=== PATIENT | female | born 1955 | race Caucasian/White ===

== ENCOUNTER 2022-08-06 08:53 | Inpatient (IN) | payer OTHER, MEDICARE ==
[2022-08-01 10:52] LABS: BASOPHILS # (AUTO) 0.1 X10'3 (0-0.2); MONOCYTES # (AUTO) 0.5 X10'3 (0-0.9); NEUTROPHILS # (AUTO) 3.9 X10'3 (1.8-7.7); PRE OP HEMOGLOBIN 12.6 g/dL (12.0-16.0)
[2022-08-01 10:54] LABS: BASOPHILS % (AUTO) 1.4 % (0-1); EOSINOPHILS % (AUTO) 0.5 % (0-6); LYMPHOCYTES # (AUTO) 1.4 X10'3 (1.1-4.8); LYMPHOCYTES % (AUTO) 24.1 % (21-51); MEAN CORPUSCULAR HEMOGLOBIN 32.2 PG (27.0-31.0); MEAN CORPUSCULAR HGB CONC 33.6 g/dL (33.0-36.5); MEAN CORPUSCULAR VOLUME 95.6 FL (78-98); MEAN PLATELET VOLUME 6.2 FL (7.4-10.4); MONOCYTES % (AUTO) 8.4 % (2-12); NEUTROPHILS % (AUTO) 65.6 % (42-75); PRE OP HEMATOCRIT 37.4 % (35.0-45.0); PRE OP PLATELET COUNT 447 X10'3 (140-440); RED BLOOD COUNT 3.91 X10'6 (4.20-5.60)
[2022-08-01 11:03] LABS: ALBUMIN 4.4 G/DL (3.4-5.0); ALBUMIN/GLOBULIN RATIO 1.3 (1.1-1.5); ALKALINE PHOSPHATASE 78 IU/L (46-116); BLOOD UREA NITROGEN 33 MG/DL (7-18); BUN/CREATININE RATIO 37.5 (10.0-20.0); CALCIUM 10.9 MG/DL (8.5-10.1); CHLORIDE 100 MMOL/L (99-107); CREATININE 0.88 MG/DL (0.40-0.90); PRE OP ALT 26 U/L (30-65); PRE OP ANION GAP 8 (8-16); PRE OP AST 28 U/L (10-37); PRE OP BILIRUB, TOTAL 0.3 MG/DL (0.0-1.0); PRE OP GLUCOSE 112 MG/DL (70-104); PRE OP POTASSIUM 4.9 MMOL/L (3.4-5.1); PRE OP SODIUM 135 MMOL/L (135-145); TOTAL CARBON DIOXIDE 27.3 MMOL/L (24-32); TOTAL PROTEIN 7.7 G/DL (6.4-8.2); eGFR 64 ML/MIN
[2022-08-06] VITALS (25 sets, daily range): BP systolic 87–157; BP diastolic 55–99
[~2022-08-06] VITALS: Ht 160 cm; Wt 63.4 kg
[~2022-08-06 08:53] MED LIST: ACET-2971 PO; ACET-864 PO; BIOT10004 PO; CALC-855 PO; DEXT15CA33 PO; DICL20GE TOP; HYDROcodone/acetaminophen 10/325mg tab PO PRN; IBUP-2768 PO; LISI20TA28 PO; MAGN400C PO; OMEG-5 PO; ROPIVAcaine 0.5% (5mg/ml) 30ml vial ONE; ZINC ACETATE PO SCH; ZINC25CA PO; acetaminophen 325mg tablet PO ONE; acetaminophen 325mg tablet PO PRN; bisacodyl 10mg suppository rectal RC PRN; cefazolin 2gm/D5W 100mL 100 ML IV ONE; celeCOXIB 100mg capsule PO ONE; dextroamphetam/amphetam ER cap 15 MG CAP.ER.24H PO SCH; diphenhydrAMINE 25mg capsule PO PRN; epiNEPHrine 1 mg/ml inj ONE; famotidine 20mg tablet PO ONE; gabapentin 300mg capsule PO ONE; ketorolac trometh. 30mg/ml inj. ONE; magnesium hydroxide 30ml (MOM) UD suspension PO PRN; metoclopramide 5 mg/ml inj IV ONE; naloxone 0.4 mg/ml inj IV PRN; ondansetron/PF 4mg/2ml inj IV PRN; oxyCODONE SR 10mg (sust. release) tab -2 tabs (20mg) PO ONE; ringers solution, lacted 1,000 ML IV SCH; tranexamic acid inj. 1,000 MG in normal saline IV soln 100ML IV ONE; vancomycin 1,000mg inj ONE; vancomycin/NS 1 GM in NS 250 ML IV ONE
--- NOTE | 2022-08-06 09:00 | NUR ---
CSM: PEDAL PULSES MARKED AND PRESENT. MUPIROCIN CREAM WAS NOT ORDERED FOR THIS PATIENT. PATIENT WATCHED THE VIDEO. EDUCATED PATIENT ON THE USE OF THE INCENTIVE SPIROMETER AND ITS IMPORTANCE.
[2022-08-06] MEDS ORDERED: MIDAZolam 1 MG/ML 5ML VIAL ONE (11:45)
[2022-08-06] MEDS ORDERED: fentaNYL/PF 50MCG/1 ML 2ML syringe ONE ×2 (11:45→14:06)
[2022-08-06] MEDS ORDERED: morphine 2 MG/ML inj. syringe IV PRN (12:20)
[2022-08-06] MEDS ORDERED: ondansetron/PF 4mg/2ml inj IV PRN (12:20)
[2022-08-06] MEDS ORDERED: meperidine/PF 25mg/ml syringe IV PRN ×3 (12:20)
[2022-08-06] MEDS ORDERED: ringers solution, lacted 1,000 ML IV SCH (12:20)
[2022-08-06] MEDS ORDERED: proCHLORperazine 10 MG/2 ml inj IV PRN (12:20)
[2022-08-06] MEDS ORDERED: ROPIVAcaine 0.2% (10 MG/5 ML) BOLUS INJECTION ADDCANAL PRN (12:20)
[2022-08-06] MEDS ORDERED: morphine 4 MG/ML inj SYRINge IV PRN (12:20)
[2022-08-06] MEDS ORDERED: ROPIVAcaine 0.2%/PF PUMP/bolus 545 ML ADDCANAL SCH (12:20)
[2022-08-06] MEDS ORDERED: HYDROmorphone inj. 0.5 MG/0.5 ML DISP.SYRIN IV PRN (13:00)
[2022-08-06] MEDS ORDERED: HYDROmorphone 1 mg/ml syringe IV PRN (13:00)
[2022-08-06] MEDS ORDERED: cloNIDine hcl/PF 100mcg/ml inj ONE (13:44)
[2022-08-06] MEDS ORDERED: propofol inj 20 ML IV ONE ×2 (14:05)
[2022-08-06] MEDS ORDERED: dexamethasone sod phosphate 4mg/ml inj. ONE (14:05)
[2022-08-06] MEDS ORDERED: diphenhydrAMINE 50 mg/ml inj ONE (14:05)
[2022-08-06] MEDS ORDERED: ketamine 50mg/5ml syringe ONE (14:40)
[2022-08-06] MEDS ORDERED: hydrALAZINE 20mg/ml inj. IV ONE (14:42)
[2022-08-06] MEDS ORDERED: meperidine/PF 25mg/ml syringe ONE (14:50)
--- NOTE | 2022-08-06 14:55 | NUR ---
Received from OR via BED, accompanied by Anesthesiologist and report given by CAMERON Anesthesiologist. PATIENT WAKING UP, DENIES PAIN, V/S WNL, SCD ON, 20G TO RIGHT AC, MANI DRESSING TO RIGHT KNEE C/D/I with ON Q BALL AT 2ML/HR. Addendum: 08/06/22 at 1532 by Caio Knowles RN Amended: Links added.
[2022-08-06] MEDS ORDERED: NORMAL SALINE IV ONE (17:00)
[2022-08-06] MEDS ORDERED: TRANEXAMIC ACID IV ONE (17:00)
--- NOTE | 2022-08-06 17:05 | NUR ---
PATIENT HAS MET ALL CRITERIA FOR TRANSFER TO ORTHO FLOOR. VSS. DRESSINGS INTACT. BED LOW, CALL LIGHT PRESENT AND 2 RAILS UP. RN PRESENT TO ACCEPT CARE OF PATIENT AND REPORT HAS BEEN CALLED. ALL QUESTIONS ANSWERED TO ACCEPTING RN. Addendum: 08/06/22 at 1715 by Caio Knowles RN Amended: Links added.
--- NOTE | 2022-08-06 18:47 | NUR ---
Patient in room [facility]TH[facility] 4009. I have received report from Renetta PÉREZ and had the opportunity to ask questions and assume patient care.
--- NOTE | 2022-08-06 18:47 | NUR ---
Report to Monserrat Sauer RN
[2022-08-06] MEDS: lisinopril 20mg tablet PO SCH (19:00)
[2022-08-06] MEDS: HYDROcodone/acetaminophen 10/325mg tab PO PRN (19:38)
[2022-08-06] MEDS ORDERED: vancomycin/NS 1 GM ADD-VANTAGE 250 ML IV SCH (20:00)
[2022-08-06] MEDS ORDERED: sennosides 8.6mg tablet PO SCH (21:00)
[2022-08-06] MEDS: potassium cl 20mEq in 1/2 NS 1,000 ML IV SCH (21:16)
[2022-08-06] MEDS: ceFAZolin/D5W- 1GM premix 50 ML IV SCH (21:17)
[2022-08-06] MEDS: ascorbic acid 500mg tablet PO SCH (21:20)
[2022-08-06] MEDS: gabapentin 300mg capsule PO SCH (21:21)
[2022-08-07 02:00] VITALS: BP 92/49
[2022-08-07] MEDS: HYDROcodone/acetaminophen 10/325mg tab PO PRN ×2 (04:15→08:30)
[2022-08-07] MEDS: potassium cl 20mEq in 1/2 NS 1,000 ML IV SCH ×2 (04:15)
[2022-08-07] MEDS: ceFAZolin/D5W- 1GM premix 50 ML IV SCH (05:09)
--- NOTE | 2022-08-07 06:40 | NUR ---
Problems reprioritized. Patient report given, questions answered & plan of care reviewed with Elizabeth PÉREZ.
[2022-08-07 07:00] VITALS: BP 119/76
[2022-08-07] MEDS ORDERED: multivitamins, therapeutics tablet PO SCH (08:00)
[2022-08-07] MEDS ORDERED: magnesium oxide 400mg tablet PO SCH (08:00)
[2022-08-07 08:20] LABS: BASOPHILS # (AUTO) 0.1 X10'3 (0-0.2); BASOPHILS % (AUTO) 0.6 % (0-1); EOSINOPHILS % (AUTO) 0.5 % (0-6); HEMATOCRIT 29.8 % (35.0-45.0); HEMOGLOBIN 10.1 g/dl (12.0-16.0); LYMPHOCYTES # (AUTO) 1.4 X10'3 (1.1-4.8); LYMPHOCYTES % (AUTO) 14.2 % (21-51); MEAN CORPUSCULAR HEMOGLOBIN 32.6 PG (27.0-31.0); MEAN CORPUSCULAR VOLUME 95.8 FL (78-98); MEAN PLATELET VOLUME 6.4 FL (7.4-10.4); MONOCYTES % (AUTO) 10.5 % (2-12); NEUTROPHILS # (AUTO) 7.3 X10'3 (1.8-7.7); NEUTROPHILS % (AUTO) 74.2 % (42-75); PLATELET COUNT 331 X10'3 (140-440); RED BLOOD COUNT 3.11 X10'6 (4.20-5.60); RED CELL DISTRIBUTION WIDTH 13.6 % (11.5-14.5); WHITE BLOOD COUNT 9.9 X10'3 (4.5-11.0)
[2022-08-07] MEDS ORDERED: aspirin 325mg tablet PO SCH (08:30)
[2022-08-07] MEDS: lisinopril 20mg tablet PO SCH (08:30)
[2022-08-07] MEDS ORDERED: dextroamphetam/amphetam ER cap 15 MG CAP.ER.24H PO SCH (08:30)
[2022-08-07] MEDS: ascorbic acid 500mg tablet PO SCH (08:31)
[2022-08-07] MEDS: gabapentin 300mg capsule PO SCH (08:31)
[2022-08-07 08:50] LABS: ANION GAP 1 (8-16); CHLORIDE 100 MMOL/L (99-107); POTASSIUM 4.5 MMOL/L (3.5-5.1); SODIUM 129 MMOL/L (135-145)
--- NOTE | 2022-08-07 10:00 | NUR ---
Patient wheeled out of hospital. IV taken out and canula intact.
--- NOTE | 2022-08-07 10:52 | NUR ---
Joint surgery consult: Pt s/p R knee surgery this admit per EMR. Pt seen by MELL for written/verbal high protein diet ed w/ RD contact information provided. MELL encouraged pt to contact dietitian's office if nutrition questions/concerns. Addendum: 08/07/22 at [address] Amended: Links added.
[2022-08-07 10:59] VITALS: BP 103/60
[2022-08-07] MEDS ORDERED: celeCOXIB 100mg capsule PO SCH (20:00)
== END 2022-08-07 11:35 | disposition home or self-care (01) | DRG 470 ==
LOC: PAS 08:53 → ORTHO 4S 08:54
PROVIDERS: ADMIT Orthopaedic Surgery; ATTEND Orthopaedic Surgery
PROC: 0SRC0J9 Replacement of Right Knee Joint with Synthetic Substitute, Cemented, Open Approach (ICD-10-PCS; principal; 2022-08-06 13:04)
DX: M17.11 Unilateral primary osteoarthritis, right knee (principal); Z79.899 Other long term (current) drug therapy
CPT/HCPCS: Z7506; Z7508; 36415; 73560; 80051; 80053; 82948; 85025; 86885; 86900; 86901; 87081; 97110; 97116; 97161; 97530; A4215; A4615; A7000; C1713; C1776; G0378; J0171; J0360; J0690; J0735; J1100; J1200; J1885; J2175; J2250; J2704; J2765; J2795; J3010; J3370; J3480; J3490; J7120